=== PATIENT | female | born 1970 | race Caucasian/White ===

== ENCOUNTER → 2016-11-03 | Outpatient (CLI) | payer OTHER ==
[~2016-11-03] MED LIST: MINO50TA PO
[2016-11-03 09:35] LABS: HEMATOCRIT 43.6 % (37-47); MEAN CELL VOLUME 85.7 fL (80-100); MEAN CORPUSCULAR HEMOGLOBIN 29.9 pg (25-34); MEAN CORPUSCULAR HGB CONC 34.9 g/dl (32-36); MEAN PLATELET VOLUME 10.3 fL (7.4-10.4); PLATELET COUNT 181 K/uL (130-400); RED BLOOD COUNT 5.09 M/uL (4.2-5.4); WHITE BLOOD COUNT 5.67 K/uL (4.8-10.8)
[2016-11-03 10:07] LABS: ESTIMATED AVERAGE GLUCOSE 120 mg/dl; HA1C FLAG Normal (Normal)
[2016-11-03 10:11] LABS: BLOOD UREA NITROGEN 18 mg/dl (7-18); BUN/CREATININE RATIO 17.5 (10-20); CALCIUM 9.2 mg/dl (8.5-10.1); CARBON DIOXIDE 28 mmol/L (21-32); CHLORIDE 108 mmol/L (98-107); GLUCOSE 121 mg/dl (70-99); POTASSIUM 4.1 mmol/L (3.5-5.1); SODIUM 141 mmol/L (136-145)
[2016-11-03 10:22] LABS: CHOLESTEROL 184 mg/dl (0-200); CHOLESTEROL/HDL RATIO 3.5; HDL CHOLESTEROL 52 mg/dl; LDL CHOLESTEROL CALCULATED 111 mg/dl; TRIGLYCERIDES 107 mg/dl (0-150); VERY LOW DENSITY LIPOPROT CALC 21 mg/dl
== END | disposition home or self-care (01) ==
LOC: C.LAB1850 08:17
PROVIDERS: ATTEND Family Medicine
DX: Z13.29 Encounter for screening for other suspected endocrine disorder (principal); Z13.1 Encounter for screening for diabetes mellitus; Z13.220 Encounter for screening for lipoid disorders

== ENCOUNTER → 2017-06-09 | Outpatient (CLI) | payer BC ==
--- NOTE | 2017-06-09 11:27 | DIAGNOSTIC IMAGING REPORT ---
R FOOT MIN 3 VIEWS ROUTINE CLINICAL HISTORY: 46 years-old Female presenting with M79.673 Acute foot [id number], rolled ankle, pain on the lateral right foot. TECHNIQUE: Frontal, oblique, and lateral views of the right foot were obtained. COMPARISON: None. FINDINGS: No acute fracture or malalignment. No degenerative change. No radiographic soft tissue abnormality. IMPRESSION: No acute osseous injury of the right foot. Electronically signed by: Davidson Loomis M.D. 06/09/2017 11:25 AM Dictated Date/Time: 06/09/2017 11:24 AM
== END | disposition home or self-care (01) ==
LOC: C.RAD 10:56
PROVIDERS: ATTEND Physician Assistant
DX: M79.671 Pain in right foot (principal)

== ENCOUNTER → 2017-06-09 | Outpatient (CLI) | payer BC ==
[2017-06-09 14:28] LABS: THYROID STIMULATING HORMONE 3.56 uIu/ml (0.300-4.500)
[2017-06-10 16:29] LABS: MICROSOMAL AB <1 IU/ML (<9)
== END | disposition home or self-care (01) ==
LOC: C.LABPBG 09:50
PROVIDERS: ATTEND Family Medicine
DX: R94.6 Abnormal results of thyroid function studies (principal)

== ENCOUNTER → 2017-06-27 | Outpatient (CLI) | payer BC ==
--- NOTE | 2017-06-27 10:08 | DIAGNOSTIC IMAGING REPORT ---
R LOWER EXT JOINT WITHOUT CLINICAL HISTORY: 46 years-old Female with M79.673 Acute foot [id number]. Acute right foot and ankle pain, most pronounced laterally status post injury. COMPARISON: Right foot radiographs 06/09/2017 TECHNIQUE: Multiplanar, multi sequence MRI of the right ankle was performed without contrast. FINDINGS: LATERAL LIGAMENT COMPLEX: There is mild attenuation of the anterior talofibular ligament suggesting chronic sprain. Calcaneofibular ligament and posterior talofibular ligaments are intact. SYNDESMOTIC LIGAMENTS: The anterior-inferior tibiofibular ligament, interosseous membrane and posterior-inferior tibiofibular ligaments are intact. DELTOID LIGAMENT COMPLEX: The superficial and deep components of the deltoid ligament are intact. ANTERIOR TENDONS: The tibialis anterior, extensor hallucis longus and extensor digitorum longus tendons are normal in position, morphology and signal. LATERAL TENDONS: The peroneus longus and brevis tendons are intact. MEDIAL TENDONS: The posterior tibialis, flexor digitorum longus and flexor hallucis longus tendons are intact. There is trace fluid surrounding the inframalleolar course of the tibialis posterior tendon compatible with Tenosynovitis. PLANTAR FASCIA: The medial and lateral bundles of the plantar fascia are normal in morphology and signal. There is no evidence of acute plantar fasciitis or tear. No evidence of plantar fascial nodules. ACHILLES TENDON: The Achilles tendon is normal in position, morphology and signal. No associated bursitis. SINUS TARSI: There is normal fat signal within the sinus tarsi. The interosseous and cervical ligaments are normal. The navicular-calcaneal (spring) ligament is without acute abnormality. TARSAL TUNNEL: There are no obstructing lesions within the tarsal tunnel. BONE MARROW: There is moderate to extensive bone marrow edema of the cuboid with linear area of decreased T1 signal noted within the distal volar portion of the cuboid extending towards the distal articular border adjacent to the fifth metatarsal base as seen on image 23 series 11 suggesting acute nondisplaced fracture. Mild associated soft tissue edema. No significant degenerative changes or additional focal bone marrow edema. No osteochondral defect of the talar dome. IMPRESSION: 1. Moderate to extensive bone marrow edema of the cuboid with acute to subacute appearing nondisplaced fracture of the volar distal cuboid extending towards the distal articular surface adjacent to the fifth metatarsal base. Mild associated soft tissue swelling, likely reactive. 2. Mild tenosynovitis involves the inframalleolar coarse of the tibialis posterior tendon without tear. 3. No acute tendinous injury identified. 4. No significant degenerative changes. The above report was generated using voice recognition software. It may contain grammatical, syntax or spelling errors. Electronically signed by: Tesfaye Story M.D. 06/27/2017 10:06 AM Dictated Date/Time: 06/27/2017 9:32 AM
== END | disposition home or self-care (01) ==
LOC: C.MRI 07:38
PROVIDERS: ATTEND Physician Assistant
DX: M79.673 Pain in unspecified foot (principal)

== ENCOUNTER → 2017-07-30 | Outpatient (CLI) | payer BC | END | disposition home or self-care (01) | LOC: C.LAB1850 11:26 | PROVIDERS: ATTEND Family Medicine | DX: R35.0 Frequency of micturition (principal) ==

== ENCOUNTER → 2017-12-09 | Outpatient (CLI) | payer BC ==
[2017-12-09 13:45] LABS: HEMOGLOBIN 14.9 g/dL (12.0-16.0); MEAN CELL VOLUME 85.4 fL (80-100); MEAN CORPUSCULAR HEMOGLOBIN 28.9 pg (25-34); MEAN CORPUSCULAR HGB CONC 33.9 g/dl (32-36); MEAN PLATELET VOLUME 10.3 fL (7.4-10.4); PLATELET COUNT 185 K/uL (130-400); RED CELL DISTRIBUTION WIDTH CV 12.6 % (11.5-14.5); RED CELL DISTRIBUTION WIDTH SD 39.4 fL (36.4-46.3)
[2017-12-09 14:11] LABS: HEMOGLOBIN A1C 5.9 % (4.5-5.6)
[2017-12-09 14:16] LABS: BLOOD UREA NITROGEN 16 mg/dl (7-18); CALCIUM 9.1 mg/dl (8.5-10.1); CARBON DIOXIDE 26 mmol/L (21-32); CHOLESTEROL 202 mg/dl (0-200); CREATININE 0.84 mg/dl (0.60-1.20); GLUCOSE 117 mg/dl (70-99); LDL CHOLESTEROL CALCULATED 134 mg/dl; POTASSIUM 4.1 mmol/L (3.5-5.1); SODIUM 141 mmol/L (136-145)
== END | disposition home or self-care (01) ==
LOC: C.LABPBG 08:14
PROVIDERS: ATTEND Family Medicine
DX: Z00.00 Encounter for general adult medical examination without abnormal findings (principal); R73.03 Prediabetes; Z13.220 Encounter for screening for lipoid disorders; R53.83 Other fatigue

== ENCOUNTER → 2018-02-14 | Outpatient (CLI) | payer BC ==
--- NOTE | 2018-02-14 16:19 | MAMMOGRAPHY REPORT ---
THIS REPORT HAS BEEN AMENDED. BILATERAL DIGITAL SCREENING MAMMOGRAM TOMOSYNTHESIS WITH CAD: 02/14/2018 CLINICAL HISTORY: Routine screening. Patient has no complaints. TECHNIQUE: The study was acquired using full field digital technology and interpreted from soft copy. Breast tomosynthesis in addition to standard 2D mammography was performed. Current study was also ev aluated with a Computer Aided Detection (CAD) system. COMPARISON: No prior exams were available for comparison. BREAST COMPOSITION: There are scattered areas of fibroglandular density in both breasts. FINDINGS: There is a 9 mm ovoid focal asymmetry in the upper outer middle to posterior right breast, for which comparison to prior outside mammograms is needed to assess stability. If the outside exams are not obtained in a timely manner, additional spot compression tomosynthesis views and possible ul trasound are recommended, although this could represent normal fibroglandular tissue. There are a few benign rim calcifications in the left breast. No other suspicious mass, architectura l distortion or cluster of microcalcifications is seen. IMPRESSION: ACR BI-RADS CATEGORY 0: INCOMPLETE EVALUATION: NEED ADDITIONAL IMAGING EVALUATION The 9 mm ovoid focal asymmetry in the upper outer right breast needs comparison to prior outside mamm ograms to assess stability. If the outside exams are not obtained in a timely manner, additional spo t compression tomosynthesis views and possible ultrasound are recommended. The patient will be called to schedule an appointment. Some breast cancers are not detected with mammography. A negative mammographic report should not gasper y biopsy if a clinically suggestive mass is present. Kortney Reyez M.D. ay/:02/14/2018 08:04:19 Divisional Human Resources Director: RT Mary Kay(Abe)(M), [facility] letter sent: Need Priors 0 BI-RADS Code: ACR BI-RADS Category 0: Incomplete Evaluation: Need Additional Imaging Evaluation AMENDMENT: 02/20/2018 Kortney Reyez M.D. A prior outside mammogram from [facility] dated 02/11/2011 became available for review. Ther e have been involutional changes involving the glandular tissue since the prior 2010 mammogram. The 9 mm ovoid focal asymmetry in the upper outer middle to posterior right breast is decreased in size a nd visual conspicuity comparing to the prior mammogram, confirming benignity, likely involuting gland ular tissue. There is a stable intramammary lymph node in the lateral right breast and a few new sae ign rim calcifications in the left breast. No new suspicious masses, calcifications, areas of arnel ectural distortion or asymmetries are seen bilaterally. Recommend routine screening mammography in 1 year. Amended BI-RADS: ACR BI-RADS Category 2: Benign letter sent: Normal 07/26
== END | disposition home or self-care (01) ==
LOC: C.MAMM 07:23
PROVIDERS: ATTEND Family Medicine
DX: Z12.31 Encounter for screening mammogram for malignant neoplasm of breast (principal); N64.89 Other specified disorders of breast

== ENCOUNTER → 2018-02-21 | Outpatient (CLI) | payer BC ==
--- NOTE | 2018-02-21 12:55 | DIAGNOSTIC IMAGING REPORT ---
R ANKLE MIN 3 VIEWS ROUTINE CLINICAL HISTORY: M25.571 RIGHT ANKLE PAIN. COMPARISON: None. DISCUSSION: No fractures or dislocations are visualized. There are no erosive or destructive changes. The ankle mortise appears intact. IMPRESSION: 1. No fractures identified. No evidence of erosive disease. Electronically signed by: Micah Rivas M.D. 02/21/2018 12:53 PM Dictated Date/Time: 02/21/2018 12:53 PM
== END | disposition home or self-care (01) ==
LOC: C.RAD1850 12:28
PROVIDERS: ATTEND Family Medicine
DX: M25.571 Pain in right ankle and joints of right foot (principal); M25.473 Effusion, unspecified ankle